=== PATIENT | female | born 1960 | race Caucasian/White ===

== ENCOUNTER → 2016-10-26 | Outpatient (CLI) | payer MEDICARE, MEDICAID | LOC: YCFC.O 09:26 | PROVIDERS: ATTEND Nurse Practitioner Family | DX: E78.2 Mixed hyperlipidemia (principal); I10 Essential (primary) hypertension ==

== ENCOUNTER → 2016-11-07 | Outpatient (CLI) | payer MEDICARE, MEDICAID | LOC: YCFC.O 09:12 | PROVIDERS: ATTEND Nurse Practitioner Family | DX: J20.9 Acute bronchitis, unspecified (principal) ==

== ENCOUNTER → 2016-12-28 | Outpatient (CLI) | payer MEDICARE, MEDICAID | END | disposition home or self-care (01) | LOC: LAB.O 14:32 | PROVIDERS: ATTEND Nurse Practitioner Family | DX: R10.11 Right upper quadrant pain (principal); R10.13 Epigastric pain; R11.2 Nausea with vomiting, unspecified ==

== ENCOUNTER 2017-02-18 05:43 | Observation (INO) | payer MEDICARE, MEDICAID ==
--- NOTE | 2017-02-16 13:28 | RAD ---
EXAM DESCRIPTION: Chest,2 Views CLINICAL HISTORY: Pre Surg for 02/18/17 COMPARISON: May 18, 2014 FINDINGS: Two-view chest x-ray shows cardiomediastinal silhouette and pulmonary vasculature to be within normal limits. The lungs are normally aerated and clear. Costophrenic angles are sharp. Moderate degenerative changes of the spine are seen. IMPRESSION: No radiographic evidence of acute cardiopulmonary disease. Electronically signed by: Jeremy Trivedi MD 02/16/2017 1:28 PM CDT
[2017-02-18] MEDS ORDERED: LACTATED RINGERS 1,000 ML ONE (07:09)
[2017-02-18] MEDS ORDERED: SODIUM CHL 0.9% 50ML MIN-BAG+ 50 ML IVPB ONE (07:17)
[2017-02-18] MEDS ORDERED: ceFAZolin SODIUM 1 GM VIAL ONE (07:18)
[2017-02-18] MEDS ORDERED: fentaNYL CITRATE INJ 50 MCG/ML AMP ONE ×2 (07:47→10:27)
[2017-02-18] MEDS ORDERED: LIDOCAINE 2 % GEL 5 ML TUBE TOP ONE (07:48)
[2017-02-18] MEDS ORDERED: ROCURONIUM BROMIDE 10 MG/ML VIAL ONE (07:48)
[2017-02-18] MEDS ORDERED: BUPIVACAINE 0.25% W/EPI 50 ML VIAL INJ ONE (07:53)
[2017-02-18] MEDS ORDERED: HEPARIN SODIUM (PORCINE) 10,000 UNITS/ML VIAL ONE (07:53)
[2017-02-18] MEDS ORDERED: GLUCAGON INJ 1 MG VIAL ONE (09:33)
--- NOTE | 2017-02-18 10:59 | OP ---
DATE OF PROCEDURE: 02/18/17 PREOPERATIVE DIAGNOSIS: 1. Symptomatic cholelithiasis. 2. Fatty infiltration of the liver. POSTOPERATIVE DIAGNOSIS: 1. Symptomatic cholelithiasis. 2. Fatty infiltration of the liver. 3. Obstructing choledocholithiasis. PROCEDURE: 1. Laparoscopic cholecystectomy with intraoperative cholangiography using fluoroscopy. 2. Wedge biopsy, right lobe of the liver. SURGEON: Antonio Ontiveros MD. ENVIRONMENTAL COMPLIANCE SPECIALIST: None. ANESTHESIA: Local infiltration of 0.25% Marcaine with epinephrine and general endotracheal anesthesia. INDICATION: The patient is a 56-year-old female who has had one severe episode of right upper quadrant pain after a fatty meal. She continues to have ongoing symptoms. She has undergone a cardiac clearance. She has sonographically diagnosed cholelithiasis. The patient was brought to the Surgical Suite today for cholecystectomy after cardiac clearance and the risks, benefits and alternatives to the procedure were discussed and accepted. FINDINGS: There was obvious fatty infiltration of the liver. Biopsy was performed and pending. Gallbladder contained stones. The wall was mildly thickened. Intraoperative cholangiography revealed a mildly dilated common bile duct. The intrahepatic ducts were normal, but there was no flow through the distal common duct into the duodenum even after Glucagon infusion was given. No other significant pathology was identified. DESCRIPTION OF PROCEDURE: After adequate general endotracheal anesthesia was obtained, the patient was prepped and draped in the usual sterile manner. Surgical time-out was taken. When this was done, local infiltration of anesthesia was obtained in the supraumbilical area. A vertical incision was made. Dissection was carried down through the skin and subcutaneous tissue to the midline fascia. Traction sutures were placed on either side of the midline. A small incision was made in the midline fascia and the peritoneum was opened bluntly. Kimmie trocar was introduced under direct vision into the abdominal cavity and fixed in place with the 20 mL balloon. CO2 was then insufflated until a pressure of 12 mmHg was reached and the abdomen was tympanitic in all four quadrants. When this was done, the laparoscope was introduced. The abdomen was inspected with the previously noted findings. The patient was then placed in reverse Trendelenburg position, turned to the left side. The upper abdominal ports were placed under direct vision. The gallbladder was grasped, retracted anteriorly and laterally. The neck of the gallbladder was retracted laterally. The triangle of Calot was then explored with the cystic duct and cystic artery identified and isolated. The cystic duct was hemoclipped once proximally. The cystic artery was hemoclipped twice proximally and once distally. A small incision was made in the cystic duct. The cholangiogram catheter was introduced through a separate stab wound in the right upper quadrant, introduced into the cystic duct and clipped in place. Cholangiograms were then taken with the previously noted findings of now flow into the duodenum. Glucagon 1 mg was given and at about 2-1/2 minutes and about 4 minutes, repeat films with infusions and there was still no contrast into the duodenum. At this point, the cystic duct catheter was removed. The cystic duct was hemoclipped three times distally and divided between the hemoclips. The cystic artery was divided. The gallbladder was then dissected free from the gallbladder bed of the liver. A second vessel was identified in the lower aspect and this was clipped. The gallbladder was removed from the supraumbilical port site in the usual manner under direct vision. The port was placed back into position. A wedge biopsy was performed of the right lobe of the liver medial to the gallbladder bed with a sharp knife. The liver specimen was delivered and then hemostasis was obtained with electrocautery turned up to 50. When hemostasis was noted to be adequate, the subhepatic space and subphrenic space were irrigated copiously with saline. The effluent was noted to be clear. There was no active bleeding was noted. The alex hepatis was inspected and no bleeding or bile leak was identified. At this point, a 15 Estonian round ISAAC drain was introduced through the lateral port site, introduced into the subhepatic space in the area of the cystic duct stump. It was sewn in place with a 4-0 Nylon suture. When this was done, the remaining upper abdominal ports were removed under direct vision and good hemostasis was noted. At this point, the CO2, the laparoscope and the supraumbilical port were removed. The supraumbilical port site fascia was approximated with a single [id number] suture of 0 Vicryl. Subcutaneous tissue was irrigated with saline. Skin edges were approximated with 4-0 Vicryl subcuticular sutures, benzoin and Steri-Strips. ISAAC drain was cut to appropriate length and connected to the grenade suction. The patient tolerated the procedure well. Estimated blood loss was less than 50 mL. All sponge, needle and instrument counts were correct. #[id number] [facility]
[2017-02-18] MEDS ORDERED: ATROPINE SULFATE 0.4 MG/ML 1ML VIAL ONE (12:00)
[2017-02-18] MEDS ORDERED: PROPOFOL 200 MG/20 ML VIAL IV ONE (12:00)
[2017-02-18] MEDS ORDERED: NEOSTIGMINE METHYLSULFATE 1 MG/ML ML IV ONE (12:00)
[2017-02-18] MEDS ORDERED: HYDROmorphone HCL INJ 2 MG/ML VIAL ONE (12:18)
[2017-02-18] MEDS ORDERED: HYDROmorphone HCL INJ 2 MG/ML VIAL IV ONE ×2 (12:22→13:20)
[2017-02-18] MEDS ORDERED: ONDANSETRON INJ 4 MG/2 ML VIAL IV PRN (16:24)
[2017-02-18] MEDS ORDERED: PANTOPRAZOLE SODIUM IV 40 MG VIAL IV SCH (16:30)
[2017-02-18] MEDS: HYDROmorphone HCL INJ 2 MG/ML VIAL IV PRN ×2 (16:51→22:16)
[2017-02-18] MEDS: LACTATED RINGERS 1,000 ML IVS PRN ×2 (16:52→18:19)
[2017-02-18] MEDS ORDERED: ENOXAPARIN SODIUM 40 MG/0.4 ML SYG SUBCU SCH (21:00)
[2017-02-18] MEDS: GABAPENTIN 400 MG CAP PO SCH (21:01)
[2017-02-19] MEDS: HYDROmorphone HCL INJ 2 MG/ML VIAL IV PRN ×3 (02:29→09:20)
[2017-02-19 05:29] VITALS: BP 112/72; TEMP 98.2
[2017-02-19] MEDS: LACTATED RINGERS 1,000 ML IVS PRN (05:38)
[2017-02-19] MEDS ORDERED: SODIUM CHLORIDE 0.9% (FLUSH) 10 ML SYG IV PRN (08:36)
[2017-02-19] MEDS ORDERED: IV SET AND CAP CHANGE INJ INJ SCH (09:00)
[2017-02-19] MEDS: GABAPENTIN 400 MG CAP PO SCH (09:01)
[2017-02-19 09:25] VITALS: O2SAT 98
--- NOTE | 2017-02-19 11:42 | DS ---
FINAL DIAGNOSIS: 1. Cholelithiasis and chronic cholecystitis pending the pathology report. 2. Choledocholithiasis with obstruction. 3. Chronic demyelinating disease. 4. History of deep venous thromboses. 5. History of bronchitis. 6. Tobacco abuse. 7. Fatty infiltration of the liver. SURGICAL PROCEDURE: The patient underwent laparoscopic cholecystectomy with intraoperative cholangiography and wedge biopsy of the right lobe of the liver on 02/18/17. HISTORY OF PRESENT ILLNESS: History and physical are from the written short stay form. LABORATORY: Postoperative day 1 bilirubin was 3 with ALT and AST elevated at 300 and 500. Amylase and lipase were within normal limits. Hemoglobin and white count were stable. Final pathology reports are pending. HOSPITAL COURSE: The patient underwent the laparoscopic cholecystectomy with cholangiography with failure to empty the bile duct into the duodenum despite the Glucagon injection, so the patient was admitted to observation and GI doctor , Dr. Christoph Gibbs in [place] was contacted. He agreed to the usual protocol of overnight observation to see if the bile would drain on its own. However, this morning, as noted, the bilirubin and liver function tests were all greatly elevated despite the fact that she tolerated clear liquids last night, so she was transferred this morning to the care of the hospitalist program at [facility] where Dr. Gibbs will be consulted and perform an ERCP. Her ISAAC drain was serous at the time of discharge. CONDITION ON DISCHARGE: Stable. PROGNOSIS: Guarded. DISPOSITION: The patient is to followup with me sometime next week or sooner if she still has the drain or requires pain medication. #[id number] [facility]
== END 2017-02-19 09:55 | disposition short-term general hospital (02) ==
LOC: AMB 05:43 → MS 15:40
PROVIDERS: ADMIT Surgery; ATTEND Surgery
DX: K80.10 Calculus of gallbladder with chronic cholecystitis without obstruction (principal); K80.44 Calculus of bile duct with chronic cholecystitis without obstruction; K76.0 Fatty (change of) liver, not elsewhere classified; I10 Essential (primary) hypertension; G61.81 Chronic inflammatory demyelinating polyneuritis; K21.9 Gastro-esophageal reflux disease without esophagitis; M81.0 Age-related osteoporosis without current pathological fracture; F17.210 Nicotine dependence, cigarettes, uncomplicated; Z79.899 Other long term (current) drug therapy; Z86.718 Personal history of other venous thrombosis and embolism; Z96.643 Presence of artificial hip joint, bilateral
CPT/HCPCS: 00790; 36415; 47379; 47563; 71020; 80053 ×2; 81001; 82150; 83690; 85025 ×2; 88304; 88307; 88313; 93005; 96372; 96374; 96375; 96376 ×2; 99406; G0378; J0690; J1170 ×8; J1610; J1644; J1650; J2405; J2710; J3010 ×2; J3490; J7050; J7120 ×3

== ENCOUNTER → 2017-05-11 | Outpatient (CLI) | payer MEDICARE, MEDICAID | END | disposition home or self-care (01) | LOC: YCFC.O 07:49 | PROVIDERS: ATTEND Nurse Practitioner Family | DX: E78.2 Mixed hyperlipidemia (principal); R94.5 Abnormal results of liver function studies ==

== ENCOUNTER → 2017-05-13 | Outpatient (CLI) | payer MEDICARE, MEDICAID ==
--- NOTE | 2017-05-14 13:07 | MAM ---
EXAM DESCRIPTION: 3D Screening BILATERAL CLINICAL HISTORY: 57 yearsFemaleSCREENING. No complaints. Sr. with ovarian cancer. Postmenopausal. No HRT. COMPARISON: Digital 2-D bilateral screening study 03/05/2015. No prior reports available. TECHNIQUE: Bilateral CC and MLO projection full-field images, 3-D tomosynthesis digital mammographic technique. Also bilateral synthesized CC/ MLO full-field images. CAD not utilized. FINDINGS: The breast parenchymal density pattern is: Scattered areas of fibroglandular density. No skin thickening or nipple retraction stable nodule at the 1:00 position of the middle third of the left breast. Bilateral axillary lymph nodes. Bilateral solitary microcalcifications. Bilateral skin calcifications. Intramammary lymph node right breast. Anterior intramammary lymph nodes in the left. No focal, stellate mass or density, focal asymmetry , and no suspicious microcalcifications bilaterally. Stable mammograms compared to prior study, taking into account differences in mammographic technique IMPRESSION: BI-RADS CATEGORY: 2 - BENIGN FINDINGS. FOLLOW UP: Routine digital bilateral screening, one year interval from April 2017. Written communication explaining the findings and follow-up, will be mailed to the patient and referring health care provider. According to the [employer], yearly mammograms are recommended starting at age 40 and continuing as long as a woman is in good health. Any breast change noted on a breast self-exam should be reported promptly to the patient's healthcare provider. Breast MRI is recommended for women with an approximately 20-25% or greater lifetime risk of breast cancer, including women with a strong family history of breast or ovarian cancer and women who have been treated for Hodgkin's disease. A negative mammographic report should not delay tissue diagnosis in patients with significant clinical history or physical findings. Extremely dense breast tissue limits the sensitivity of digital mammography. Electronically signed by: Mikie Mead MD 05/14/2017 1:06 PM CDT Workstation: [id number]
== END | disposition home or self-care (01) ==
LOC: MAMMO 08:52
PROVIDERS: ATTEND Nurse Practitioner Family
DX: Z12.31 Encounter for screening mammogram for malignant neoplasm of breast (principal)
CPT/HCPCS: 77063; G0202

== ENCOUNTER → 2017-06-23 | Outpatient (CLI) | payer MEDICARE, MEDICAID ==
--- NOTE | 2017-06-24 13:54 | RAD ---
EXAM DESCRIPTION: Foot,Left 3 Views CLINICAL HISTORY: 57 years, Female, SOFT TISSUE SWELLING COMPARISON: None TECHNIQUE: AP, lateral, and oblique views of the left foot FINDINGS: There is no bone, joint, or soft tissue abnormality observed. There is no radiopaque foreign body. A localized mass or marked soft tissue focal swelling is not apparent. IMPRESSION: Essentially negative left foot three views Electronically signed by: Alexandr Bazzi MD 06/24/2017 1:52 PM CDT
== END ==
LOC: YCFC.O 15:46
PROVIDERS: ATTEND Nurse Practitioner Family
DX: M25.475 Effusion, left foot (principal)

== ENCOUNTER 2017-10-22 13:24 | Emergency (ER) | payer MEDICARE, MEDICAID ==
[2017-10-22 13:50] VITALS: BP 138/71; TEMP 98.3; O2SAT 97
--- NOTE | 2017-10-22 13:50 | ED.PDOC ---
History of Present Illness - General Chief Complaint: Upper Extremity Injury Stated Complaint: left shoulder pain Time Seen by Provider: 10/22/17 13:48 Source: patient Exam Limitations: no limitations - History of Present Illness Occurred: other - TWO DAYS AGO Pain - Upper Extremity: moderate: Shoulder, left Method of Injury: unknown Improving Factors: rest Worsening Factors: movement Associated Symptoms: COUGH Allergies/Adverse Reactions: Allergies NO KNOWN ALLERGY Allergy (Verified 09/03/14 17:01) Home Medications: Ambulatory Orders Calcium Carbonate [Calcium] 1,500 mg PO DAILY #0 09/28/13 Gabapentin [Neurontin] 800 mg PO TID #0 09/28/13 Lisinopril 20 mg PO DAILY #0 09/28/13 Magnesium Citrate [Magnesium Citrate 1.745 gm/30Ml] 1 aimee PO ONCE #1 aimee Cetirizine HCl [Zyrtec Allergy] 10 mg PO DAILY 02/18/17 Review of Systems - Review of Systems Constitutional: States: chills, fever EENTM: States: nose congestion Respiratory: States: cough Cardiology: States: no symptoms reported Gastrointestinal/Abdominal: States: no symptoms reported Genitourinary: States: no symptoms reported Musculoskeletal: States: see HPI Skin: States: no symptoms reported Neurological: States: no symptoms reported Endocrine: States: no symptoms reported Hematologic/Lymphatic: States: no symptoms reported All other Systems: Reviewed and Negative Past Medical History (General) - Patient Medical History Hx Seizures: No Hx Stroke: No Hx Dementia: No Hx Asthma: No Hx of COPD: No Hx Cardiac Disorders: Yes - dyslipidemia Hx Congestive Heart Failure: No Hx Pacemaker: No Hx Hypertension: Yes Hx Thyroid Disease: No Hx Diabetes: No Hx Gastroesophageal Reflux: No Hx Renal Disease: No Hx Cancer: No Hx of HIV: No Hx Hepatitis C: No Hx MRSA: No Hx Other PMH: Yes - AUTO IMMUNE DISORDER - Vaccination History Hx Tetanus, Diphtheria Vaccination: Yes Hx Influenza Vaccination: No Hx Pneumococcal Vaccination: No - Social History Hx Tobacco Use: Yes Hx Chewing Tobacco Use: No Hx Alcohol Use: No Hx Substance Use: No Hx Substance Use Treatment: No Hx Depression: No Hx Physical Abuse: No Hx Emotional Abuse: No Hx Suspected Abuse: No - Female History Patient : No Family Medical History - Family History Paternal Living Status: Hx Family Cancer: Yes Sister Living Status: Hx Family Cancer: Yes Brother Living Status: Hx Cardiac Disease: Yes Physical Exam - Physical Exam General Appearance: Alert, No apparent distress, Obvious distress, Obese, Well Developed, Well Groomed, Well Hydrated, Well Nourished Eyes, Ears, Nose, Throat Exam: PERRL/EOMI, normal ENT inspection, TMs normal, pharynx normal Neck: non-tender, full range of motion, supple, normal inspection Cardiovascular/Respiratory: regular rate, rhythm, no M/R/G, normal peripheral pulses, no JVD, normal breath sounds, no respiratory distress Abdominal Exam: non-tender, no organomegaly, no hernia Back Exam: normal inspection, no CVA tenderness, no vertebral tenderness Shoulder Exam: normal inspection, no evidence of injury, limited ROM, pain - PAIN ON PALPATION OF MEDIAL INFERIOR BAORDER OF LEFT SCAPULA WITH INCREASED PAIN WITH ROM Elbow/Forearm Exam: normal inspection, non-tender, no evidence of injury, normal ROM Wrist Exam: normal inspection, non-tender, no evidence of injury, normal ROM Hand Exam: normal inspection, non-tender, no evidence of injury, normal ROM Neuro/Tendon: normal sensation, normal motor functions, normal tendon functions , no evidence tendon injury Mental Status: alert, oriented x 3 Skin Exam: normal color, warm/dry Progress - Progress Progress: 10/22/17 14:51 PT PAIN MUCH IMPROVED WITH THE TORADOL. WILL D/C HOME WITH MOTRIN 800MG Q8. Departure - Departure Clinical Impression: Left scapulocostal sprain, Sprain Time of Disposition: 14:53 Disposition: Discharge to Home or Self Care Condition: Good Departure Forms: ED Discharge - Pt. Copy, Patient Portal Self Enrollment Instructions: DI for Arm Pain Diet: resume usual diet Activity: increase activity as tolerated Referrals: Kathe Anderson NP [Primary Care Provider] - 1-2 Weeks Home Medications: Ambulatory Orders Calcium Carbonate [Calcium] 1,500 mg PO DAILY #0 09/28/13 Gabapentin [Neurontin] 800 mg PO TID #0 09/28/13 Lisinopril 20 mg PO DAILY #0 09/28/13 Magnesium Citrate [Magnesium Citrate 1.745 gm/30Ml] 1 aimee PO ONCE #1 aimee Cetirizine HCl [Zyrtec Allergy] 10 mg PO DAILY 02/18/17
[2017-10-22] MEDS ORDERED: KETOROLAC TROMETHAMINE INJ 60 MG/2 ML VIAL IM ONE (13:54)
--- NOTE | 2017-10-22 14:16 | RAD ---
EXAM DESCRIPTION: Chest,2 Views CLINICAL HISTORY: COUGH COMPARISON: February 16, 2017 FINDINGS: Two-view chest x-ray shows cardiomediastinal silhouette and pulmonary vasculature to be within normal limits. The lungs are normally aerated and clear. Costophrenic angles are sharp. Moderate disc degenerative changes of the spine are seen. IMPRESSION: No radiographic evidence of acute cardiopulmonary disease. Electronically signed by: Jeremy Trivedi MD 10/22/2017 2:16 PM CRITICAL SYSTEMS TECHNICIAN
== END 2017-10-22 15:07 | disposition home or self-care (01) ==
LOC: ER 13:24
DX: S43.82XA Sprain of other specified parts of left shoulder girdle, initial encounter (principal); E78.5 Hyperlipidemia, unspecified; I10 Essential (primary) hypertension; Z87.891 Personal history of nicotine dependence; X58.XXXA Exposure to other specified factors, initial encounter; Y92.9 Unspecified place or not applicable

== ENCOUNTER → 2017-10-27 | Outpatient (CLI) | payer MEDICARE, MEDICAID | LOC: LAB.O 08:23 | PROVIDERS: ATTEND Psychiatry & Neurology Neurology | DX: G62.9 Polyneuropathy, unspecified (principal); R20.8 Other disturbances of skin sensation ==

== ENCOUNTER → 2018-06-15 | Outpatient (CLI) | payer MEDICARE, MEDICAID | LOC: YCFC.O 07:49 | PROVIDERS: ATTEND Nurse Practitioner Family | DX: I10 Essential (primary) hypertension (principal); E78.2 Mixed hyperlipidemia ==

== ENCOUNTER → 2018-06-21 | Outpatient (CLI) | payer MEDICARE, MEDICAID ==
--- NOTE | 2018-06-22 13:22 | MAM ---
EXAM DESCRIPTION: 3D Screening BILATERAL : Digital Mammography. CLINICAL HISTORY: 58 years Female ANNUAL SCREENING . No complaints. No personal history or family history of breast cancer. Sister with ovarian cancer. No childbirth. Postmenopausal. No HRT. [employer] inheritance. COMPARISON: Bilateral screening digital breast tomosynthesis 05/13/2017.. TECHNIQUE: Bilateral CC and MLO projection full-field images, Digital tomosynthesis mammographic technique. Bilateral digital 2-D full-field MLO images. CAD not utilized. FINDINGS: The breast parenchymal density pattern is: Scattered areas of fibroglandular density. No skin thickening or nipple retraction. Bilateral solitary microcalcifications. Bilateral axillary lymph nodes. Stable soft tissue density with calcifications in the mid right breast. Focal asymmetry in mass density in the upper outer quadrant of the anterior third of the right breast at the 100 clock position. Associated with solitary calcifications. Bilateral vascular calcifications. No new focal, stellate mass or density, focal asymmetry , and no suspicious microcalcifications bilaterally. Stable mammograms compared to prior study. IMPRESSION: Benign exam. BIRAD CATEGORY: 2 BENIGN FINDINGS. RECOMMENDATIONS: FOLLOW UP: Routine digital bilateral screening, one year interval from May 2018. Written communication explaining the IMPRESSION and follow-up, will be mailed to the patient and referring health care provider. According to the [employer], yearly mammograms are recommended starting at age 40 and continuing as long as a woman is in good health. Any breast change noted on a breast self-exam should be reported promptly to the patient's healthcare provider. Breast MRI is recommended for women with an approximately 20-25% or greater lifetime risk of breast cancer, including women with a strong family history of breast or ovarian cancer and women who have been treated for Hodgkin's disease. A negative mammographic report should not delay tissue diagnosis in patients with significant clinical history or physical findings. Extremely dense breast tissue limits the sensitivity of digital mammography. Electronically signed by: Mikie Mead MD 06/22/2018 1:21 PM CDT
== END ==
LOC: MAMMO 10:05
PROVIDERS: ATTEND Nurse Practitioner Family
DX: Z12.31 Encounter for screening mammogram for malignant neoplasm of breast (principal)

== ENCOUNTER → 2019-01-17 | Outpatient (CLI) | payer MEDICARE, MEDICAID | LOC: YCFC.O 07:08 | PROVIDERS: ATTEND Nurse Practitioner Family | DX: E78.2 Mixed hyperlipidemia (principal) ==

== ENCOUNTER 2020-10-07 07:07 | Observation (INO) | payer MEDICARE, MEDICAID ==
[2020-10-07] MEDS ORDERED: ASPIRIN TABLET 325 MG TAB PO ONE (07:31)
--- NOTE | 2020-10-07 08:04 | RAD ---
EXAM DESCRIPTION: Chest,1 View CLINICAL HISTORY: chest pain, left 3 days FINDINGS/ IMPRESSION: Comparison 02/21/2019 Normal cardiomediastinal silhouette. No edema, infiltrate or effusion No pneumothorax. No acute bony abnormality Electronically signed by: Alexandr Claros MD 10/07/2020 8:02 AM [facility]
[2020-10-07] MEDS ORDERED: SODIUM CHLORIDE 0.9% 1000ML 1,000 ML IVS ONE (08:54)
--- NOTE | 2020-10-07 09:39 | CT ---
EXAM DESCRIPTION: CTA Chest CLINICAL HISTORY: 60 years, Female, left chest pain, ddimer COMPARISON: Chest x-ray October 07, 2020 TECHNIQUE: CT pulmonary angiography is performed with thin-section multi detector technique during rapid bolus administration of Isovue 300 IV contrast media. Multiplanar reformatted images are reviewed along with source images and maximum intensity projection three dimensional images which were created on a separate dedicated workstation and are stored in the patient's medical record. FINDINGS: Positive enhancement of pulmonary arteries with filling defects consistent with emboli in the pulmonary arteries serving the posterior segment right upper lobe, right middle lobe and right lower lobe. Prominent emboli are seen at the level of the proximal left lower lobe pulmonary arterial branches with smaller peripheral left lower lobe emboli present as well. No RV strain pattern. Extensive coronary calcification. No pericardial effusion. Normal thyroid gland. Nodularity in the left breast is noted. Correlate with mammographic and breast sonographic findings. Normal enhancement of cardiac chambers. No mediastinal adenopathy. Early enhancement of the aorta is negative for aneurysm or dissection. Lung window images are negative for infiltrate. Minimal discoid atelectasis or scarring in the inferior lingula and medial right middle lobe. No worrisome mass or nodule. In the upper abdomen, upper abdominal viscera are unremarkable. Few small accessory splenules are incidentally noted. No chest wall mass or rib fracture. No axillary or lower cervical adenopathy. Coronal and sagittal reformatted images and oblique MIP images confirm the presence of bilateral pulmonary emboli. I discussed results over the phone with the emergency room physician at [facility] , Dr. Adam Santiago, at the time of image interpretation 9:36 AM on 10/07/2020. IMPRESSION: Positive bilateral pulmonary emboli predominantly involving the lower lobes. This exam was performed according to our departmental dose-optimization program, which includes automated exposure control, adjustment of the mA and/or kV according to patient size and/or use of iterative reconstruction technique. Total DLP equals 836.2 mGycm. Electronically signed by: Junito Galarza MD 10/07/2020 9:38 AM INSTRUCTIONAL PARAPROFESSIONAL
[2020-10-07] MEDS ORDERED: ENOXAPARIN SODIUM 100 MG/ML SYG SUBCU ONE ×2 (09:43→20:34)
--- NOTE | 2020-10-07 10:32 | ED.PDOC ---
History of Present Illness - General Chief Complaint: Chest Pain/OH Stated Complaint: chest pain Time Seen by Provider: 10/07/20 07:29 Source: patient Exam Limitations: no limitations - History of Present Illness Initial Comments: Patient is a 60-year-old female presented to emergency room secondary to chest pain, mild shortness of breath and a cough. Patient reports she had a cough and some mild shortness of breath for the last 3 days. The chest pain got significantly worse this morning and is worse with taking a deep breath, twisting and turning or coughing. She has not hypoxic. She is not hypotensive. She has had DVTs in the past but is not currently on any blood thinners. No fever. Cough is not really productive. She has smoked for 50 years. No de finite history of COPD however. Timing/Duration: unsure Severity: severe Worsening Factors: movement Associated Symptoms: chest pain, cough, shortness of breath Allergies/Adverse Reactions: Allergies NO KNOWN ALLERGY Allergy (Verified 10/07/20 07:22) Home Medications: Ambulatory Orders Calcium Carbonate [Calcium] 1,500 mg PO DAILY #0 09/28/13 Gabapentin [Neurontin] 800 mg PO TID #0 09/28/13 Lisinopril 20 mg PO DAILY #0 09/28/13 Magnesium Citrate 1 aimee PO ONCE #1 aimee 09/03/14 Cetirizine HCl [Zyrtec Allergy] 10 mg PO DAILY 02/18/17 Ibuprofen 800 mg PO Q8HRS #30 tab 10/22/17 Review of Systems - Review of Systems Constitutional: States: malaise EENTM: States: no symptoms reported Respiratory: States: cough, short of breath Cardiology: States: chest pain Gastrointestinal/Abdominal: States: no symptoms reported Genitourinary: States: no symptoms reported Musculoskeletal: States: no symptoms reported Skin: States: no symptoms reported Neurological: States: no symptoms reported Endocrine: States: no symptoms reported All other Systems: No Change from Baseline Past Medical History (General) - Patient Medical History Hx Seizures: No Hx Stroke: No Hx Dementia: No Hx Asthma: No Hx of COPD: No Hx Cardiac Disorders: Yes - dyslipidemia Hx Congestive Heart Failure: No Hx Pacemaker: No Hx Hypertension: Yes Hx Thyroid Disease: No Hx Diabetes: No Hx Gastroesophageal Reflux: No Hx Renal Disease: No Hx Cancer: No Hx of HIV: No Hx Hepatitis C: No Hx MRSA: No Surgical History: appendectomy - Vaccination History Hx Tetanus, Diphtheria Vaccination: Yes Hx Influenza Vaccination: No Hx Pneumococcal Vaccination: No - Social History Hx Tobacco Use: Yes Hx Chewing Tobacco Use: No Hx Alcohol Use: No Hx Substance Use: Yes - marijuana occasionally Hx Substance Use Treatment: No Hx Depression: No Hx Physical Abuse: No Hx Emotional Abuse: No Hx Suspected Abuse: No - Activities of Daily Living Hospice Agency (if applicable):: None - Female History Patient : No Family Medical History - Family History Paternal Living Status: Hx Family Cancer: Yes Sister Living Status: Hx Family Cancer: Yes Brother Family History: No Known Living Status: Hx Cardiac Disease: Yes Physical Exam - Physical Exam General Appearance: Alert, Anxious Eye Exam: bilateral normal Ears, Nose, Throat: hearing grossly normal, normal pharynx Neck: full range of motion, supple Respiratory: lungs clear, normal breath sounds, no respiratory distress, no accessory muscle use Cardiovascular/Chest: normal peripheral pulses, regular rate, rhythm - Borderline tachycardia, no edema Gastrointestinal/Abdominal: non tender, soft Rectal Exam: deferred Back Exam: no CVA tenderness, no vertebral tenderness Extremity: normal range of motion, non-tender, normal inspection, no pedal edema, normal capillary refill 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 We are awaiting official read from the echocardiogram however clinically the patient does not appear to be in any heart failure from this. She has not hypoxic or hypotensive. She does mainly have pleuritic symptoms. She is receiving some pain medications for that. She has been started on Lovenox here. We will also bilateral lower extremity venous Dopplers, if for nothing else then for follow- up reasons. The patient will be admitted for the next 24 hours due to the extensive nature of the pulmonary emboli to make sure we not develop any cardiac issues over the next 24 hours. She has tested negative for coronavirus today. Admit for continued care and monitoring. cesario siegel [id number] - Results/Orders Results/Orders: Rapid coronavirus test is negative. Chest x-ray shows no significant acute infiltrates. CTA of the chest shows bilateral pulmonary emboli, more extensive on the right. No significant evidence of right sided strain. There is mild compared to the left breast that needs follow-up and correlation with mammogram and ultrasound findings. Laboratory Tests 10/07/20 10/07/20 10/07/20 07:20 07:20 07:20 WBC 9.2 RBC 4.66 Hgb 16.3 H Hct 47.7 H MCV 102.5 H MCH 34.9 H MCHC 34.1 RDW 15.7 H Plt Count 162 MPV 8.0 Absolute Neuts (auto) 7.10 H Absolute Lymphs (auto) 1.30 Absolute Monos (auto) 0.70 Absolute Eos (auto) 0.00 Absolute Basos (auto) 0.00 Neutrophils % 77.0 Lymphocytes % 14.5 L Monocytes % 7.7 Eosinophils % 0.5 L Basophils % 0.3 PT 10.3 INR 1.04 PTT (SP) 19.2 L D-Dimer, Quantitative 777.0 H* Sodium 134 L Potassium 3.5 L Chloride 100 L Carbon Dioxide 22 Anion Gap 15.5 BUN 8 Creatinine 0.83 BUN/Creatinine Ratio 9.6 L Random Glucose 110 H Serum Osmolality 267.2 L Lactic Acid Calcium 8.7 Magnesium 2.0 Total Bilirubin 1.6 H AST 34 ALT 30 Alkaline Phosphatase 75 LD Total Creatine Kinase 50 CK-MB (CK-2) 0.8 CK-MB (CK-2) % Not Reportable Troponin I < 0.02 C-Reactive Protein B-Natriuretic Peptide < 15.0 Serum Total Protein 7.6 Albumin 4.3 Globulin 3.3 Albumin/Globulin Ratio 1.3 Urine Color Urine Appearance Urine pH Ur Specific [place] Urine Protein Urine Glucose (UA) Urine Ketones Urine Blood Urine Nitrite Urine Bilirubin Urine Urobilinogen Ur Leukocyte Esterase Urine RBC Urine WBC Ur Epithelial Cells Amorphous Sediment Urine Bacteria Urine Mucus 10/07/20 10/07/20 10/07/20 07:20 07:39 09:22 WBC RBC Hgb Hct MCV MCH MCHC RDW Plt Count MPV Absolute Neuts (auto) Absolute Lymphs (auto) Absolute Monos (auto) Absolute Eos (auto) Absolute Basos (auto) Neutrophils % Lymphocytes % Monocytes % Eosinophils % Basophils % PT INR PTT (SP) D-Dimer, Quantitative Sodium Potassium Chloride Carbon Dioxide Anion Gap BUN Creatinine BUN/Creatinine Ratio Random Glucose Serum Osmolality Lactic Acid 0.9 Calcium Magnesium Total Bilirubin AST ALT Alkaline Phosphatase LD Total 151 Creatine Kinase CK-MB (CK-2) CK-MB (CK-2) % Troponin I C-Reactive Protein 7.2 H B-Natriuretic Peptide Serum Total Protein Albumin Globulin Albumin/Globulin Ratio Urine Color Yellow Urine Appearance Clear Urine pH 6.0 Ur Specific [place] 1.015 Urine Protein Negative Urine Glucose (UA) Negative Urine Ketones Trace Urine Blood Trace-intact H Urine Nitrite Negative Urine Bilirubin Negative Urine Urobilinogen 0.2 Ur Leukocyte Esterase Trace H Urine RBC 0-1 Urine WBC 0-1 Ur Epithelial Cells 3-5 Amorphous Sediment 1+ Urine Bacteria 1+ Urine Mucus Trace Departure - Departure Clinical Impression: Bilateral pulmonary embolism, Pleurisy Disposition: Admit Patient Departure Forms: ED Discharge - Pt. Copy, Patient Portal Self Enrollment Instructions: DI for Chest Pain Referrals: Yolanda Watt NP [Primary Care Provider] - 1-2 Weeks Home Medications: Ambulatory Orders Calcium Carbonate [Calcium] 1,500 mg PO DAILY #0 09/28/13 Gabapentin [Neurontin] 800 mg PO TID #0 09/28/13 Lisinopril 20 mg PO DAILY #0 09/28/13 Magnesium Citrate 1 aimee PO ONCE #1 aimee 09/03/14 Cetirizine HCl [Zyrtec Allergy] 10 mg PO DAILY 02/18/17 Ibuprofen 800 mg PO Q8HRS #30 tab 10/22/17 Decision To Admit - Decistion To Admit Decision to Admit Reason: Medical Nature Decision to Admit Date: 10/07/20 Decision to Admit Time: 10:54
[2020-10-07] MEDS ORDERED: KETOROLAC TROMETHAMINE INJ 30 MG/ML VIAL IM ONE (10:49)
[2020-10-07] MEDS ORDERED: MORPHINE SULFATE INJ 10 MG/ML VIAL IV ONE (10:49)
[2020-10-07] MEDS ORDERED: SODIUM CHLORIDE 0.9% (FLUSH) 10 ML SYG IV PRN (11:34)
--- NOTE | 2020-10-07 11:35 | US ---
EXAM DESCRIPTION: Venous,Lower Extremity LT: ULTRASOUND. CLINICAL HISTORY: pulm emboli COMPARISON: Duplex deep venous lower extremity right side examination of the same visit. TECHNIQUE: Buckner-scale and doppler sonographic evaluation of the deep venous system of the left lower extremity. FINDINGS: Doppler evaluation shows normal color flow and normal phasicity and augmentation of the left common femoral vein, left femoral vein, popliteal vein, left greater saphenous vein, junction with the CFV. Also normal color flow and normal phasicity and augmentation of the peroneal, and and posterior tibial vein. The left lower extremity deep veins were completely compressible; normal occlusion with transducer pressure. Buckner-scale survey showed no echogenic thrombus within these veins. IMPRESSION: 1. Duplex ultrasound evaluation of the left lower extremity deep venous system showing no evidence of thrombosis. Electronically signed by: Mikie Mead MD 10/07/2020 11:33 AM [facility]
--- NOTE | 2020-10-07 11:45 | HP ---
SUPERVISING PHYSICIAN: Alexandr Santiago MD CHIEF COMPLAINT: Chest pain. HISTORY OF PRESENT ILLNESS: This is a 60-year-old female who presented to the Emergency Room with chest pain and mild shortness of breath as well as a cough. The complaints have been lasting for the last 3 days or so, however, the chest pain got significantly worse this morning along with shortness of breath. She does have a history of DVTs but has not taken blood thinners recently. She states she was taken off of these. She is a smoker with no diagnosed history of chronic obstructive pulmonary disease. In the ER, her workup included labs and diagnostics. Her CBC was unremarkable. D-dimer was elevated at 777. Chemistry with no significant abnormalities, mildly elevated bilirubin at 1.6. Troponin was negative. EKG did not show any acute changes. She did have a CT angio of the chest which confirmed bibasilar pulmonary emboli. For that reason, she also had lower extremity ultrasounds to rule out DVT. The right lower extremity DVT was noted in right popliteal, right peroneal and right posterior tibial veins. The left lower extremity was unremarkable. At time of examination, the patient's hemodynamics are acceptable. She is not requiring oxygen and shortness of breath is improved, however, given the bilateral pulmonary embolisms, she is referred for admission. PAST MEDICAL HISTORY: 1. Deep venous thrombosis 2. Hypertension. 3. Chronic inflammatory demyelinating polyneuropathy. PAST SURGICAL HISTORY: 1. Gallbladder surgery. 2. Bilateral hip replacements. MEDICATIONS: Please see medication reconciliation list once verified in the computer. ALLERGIES: NO KNOWN DRUG ALLERGIES. FAMILY HISTORY: Father of pancreatic cancer. Grandfather had bone cancer. Mother with diabetes. SOCIAL HISTORY: The patient smokes one pack per day and has for 20+ years. Occasional alcohol. Occasional marijuana use. REVIEW OF SYSTEMS: CONSTITUTIONAL: No fever or chills. No recent weight loss or weight gain. HEENT: No headaches, vision changes, ear pain, nasal congestion or throat pain. RESPIRATORY: Positive for shortness of breath. No cough, hemoptysis or pleuritic chest pain. CARDIOVASCULAR: Positive for chest pain. No palpitations or peripheral edema. GASTROINTESTINAL: No nausea, vomiting, diarrhea, constipation or abdominal pain. GENITOURINARY: No dysuria, frequency or flank pain. ENDOCRINE: No polydipsia, polyuria or polyphagia. No heat or cold intolerance. NEUROLOGIC: No syncope, paresthesias or seizures. PHYSICAL EXAMINATION: VITAL SIGNS: Blood pressure 117/78, heart rate 93, respiratory rate 18, temperature 98.0, oxygen saturation 97%. GENERAL: Ms. Cruz is a 60-year-old female in no active distress. NEUROLOGIC: The patient is alert. LUNGS: Diminished but otherwise clear to auscultation bilaterally. CARDIOVASCULAR: Regular rate and rhythm. Normal S1, S2. ABDOMEN: Soft. Positive bowel sounds. GENITOURINARY: Deferred. EXTREMITIES: Lower extremities with no edema. LABORATORY: Labs and films are as discussed in history of present illness. IMPRESSION: 1. Bilateral pulmonary emboli. 2. Right lower extremity deep venous thrombosis. 3. Hypertension. 4. Chronic inflammatory demyelinating polyneuropathy. 5. Nicotine dependency. PLAN: The patient will be admitted and placed on cardiac monitoring and monitored for the next 24 hours to ensure no decompensation. I will have case management see exactly what anticoagulant medications are best for her given she is on Medicaid and Medicare. She has already gotten full dose Lovenox. We will put her on proton pump inhibitor and resume her home medications once they are verified in the computer as well. If she remains stable over the next 24 hours, she can be discharged on anticoagulation and she can followup with JARETT Marquez, as an outpatient. #[id number] [facility]
--- NOTE | 2020-10-07 11:46 | US ---
EXAM DESCRIPTION: Venous,Lower Extremity RT: ULTRASOUND. CLINICAL HISTORY: pulm emboli COMPARISON: None Available. TECHNIQUE: Buckner-scale and doppler sonographic evaluation of the deep venous system of the right lower extremity. FINDINGS: Partial thrombosis right popliteal vein with partial grayscale compression by the transducer and echogenicity within the vein. Decreased venous waveforms and color flow on Doppler. The right peroneal vein and right posterior tibial vein showed minimal to no Doppler venous waveform or color flow. Echogenic thrombus on buckner scale imaging with no compression. Doppler evaluation shows normal color flow and normal phasicity and augmentation of the right common femoral vein, right femoral vein, right greater saphenous vein, junction with the CFV. These right lower extremity deep veins were completely compressible; normal occlusion with transducer pressure. Buckner-scale survey showed no echogenic thrombus within these veins. IMPRESSION: 1. Duplex ultrasound evaluation of the right lower extremity deep venous system showing thrombosis in the right popliteal, right peroneal, and right posterior tibial vein. 2. Remaining deep veins of the right lower extremity were unremarkable. CRITICAL COMMUNICATION: The critical value was communicated directly by Gabrielle Ramirez RDMS, (V)T, via phone call, with Lisa Osei RN, Emergency Department, at approximately 1055, on October 07, 2020. Electronically signed by: Mikie Mead MD 10/07/2020 11:45 AM [employer]
[2020-10-07] MEDS ORDERED: IV SET AND CAP CHANGE INJ INJ SCH (12:00)
[2020-10-07] MEDS ORDERED: GABAPENTIN 400 MG CAP ONE (20:34)
[2020-10-07] MEDS: GABAPENTIN 800 MG PO SCH (20:42)
[2020-10-07] MEDS: MORPHINE SULFATE INJ 10 MG/ML VIAL IV PRN (20:44)
[2020-10-08] MEDS: MORPHINE SULFATE INJ 10 MG/ML VIAL IV PRN ×2 (05:26→11:26)
[2020-10-08] MEDS ORDERED: LORATADINE 10 MG TAB PO ONE (06:50)
[2020-10-08] MEDS ORDERED: LISINOPRIL 10 MG TAB ONE (06:50)
[2020-10-08] MEDS ORDERED: GABAPENTIN 400 MG CAP ONE (06:51)
[2020-10-08] MEDS: GABAPENTIN 800 MG PO SCH (08:03)
[2020-10-08] MEDS ORDERED: NON-FORMULARY MEDICATION 1 EA MIS (Lisinopril [Lisinopril] 20 MG) PO SCH (09:00)
[2020-10-08] MEDS ORDERED: NON-FORMULARY MEDICATION 1 EA MIS (Loratadine [Claritin] 10 MG) PO SCH (09:00)
[2020-10-08] MEDS ORDERED: ENOXAPARIN SODIUM 100 MG/ML SYG SUBCU SCH (09:00)
[2020-10-08 12:20] VITALS: BP 111/78; TEMP 96.5; O2SAT 96
--- NOTE | 2020-10-08 14:04 | DS ---
SUPERVISING PHYSICIAN: Alexandr Santiago MD ADMISSION DIAGNOSIS: 1. Bilateral pulmonary emboli. 2. Right lower extremity deep venous thrombosis. 3. Hypertension. 4. Chronic inflammatory demyelinating polyneuropathy. 5. Nicotine dependency. DISCHARGE DIAGNOSIS: 1. Bilateral pulmonary emboli. 2. Right lower extremity deep venous thrombosis. 3. Hypertension. 4. Chronic inflammatory demyelinating polyneuropathy. 5. Nicotine dependency. HOSPITAL COURSE: This is a 60-year-old female who presented to the Emergency Room with chest pain and mild shortness of breath as well as a cough. The complaints have been lasting for the last 3 days or so, however, the chest pain got significantly worse this morning along with shortness of breath. She does have a history of DVTs but has not taken blood thinners recently. She states she was taken off of these. She is a smoker with no diagnosed history of chronic obstructive pulmonary disease. In the ER, her workup included labs and diagnostics. Her CBC was unremarkable. D-dimer was elevated at 777. Chemistry with no significant abnormalities, mildly elevated bilirubin at 1.6. Troponin was negative. EKG did not show any acute changes. She did have a CT angio of the chest which confirmed bibasilar pulmonary emboli. For that reason, she also had lower extremity ultrasounds to rule out DVT. The right lower extremity DVT was noted in right popliteal, right peroneal and right posterior tibial veins. The left lower extremity was unremarkable. At time of examination, the patient's hemodynamics are acceptable. She is not requiring oxygen and shortness of breath is improved, however, given the bilateral pulmonary embolisms, she is referred for admission. She has been stable overnight with no de-oxygenation or hemodynamic instability. She will go home today on Xarelto 15 mg b.i.d. for 3 weeks followed by 20 mg of Xarelto daily indefinitely. She will need followup with JARETT Marquez, to facilitate the 20 mg Xarelto. She has been instructed not to wrap her leg. She can go home, ambulate, but no strenuous activity. She is to resume normal diet. #[id number] [facility]
[2020-10-08] MEDS ORDERED: GABAPENTIN 400 MG CAP PO SCH (15:00)
[2020-10-09] MEDS ORDERED: LISINOPRIL 10 MG TAB PO SCH (09:00)
[2020-10-09] MEDS ORDERED: LORATADINE 10 MG TAB PO SCH (09:00)
== END 2020-10-08 13:08 | disposition home or self-care (01) ==
LOC: ER 07:07 → MS 07:08 → UNDOADMOB 11:44 → MS 11:44 → UNDODISOB 10-08 13:08
PROVIDERS: ADMIT Nurse Practitioner; ATTEND Nurse Practitioner
DX: I26.99 Other pulmonary embolism without acute cor pulmonale (principal); I82.431 Acute embolism and thrombosis of right popliteal vein; I82.451 Acute embolism and thrombosis of right peroneal vein; I82.441 Acute embolism and thrombosis of right tibial vein; I10 Essential (primary) hypertension; G61.81 Chronic inflammatory demyelinating polyneuritis; E78.5 Hyperlipidemia, unspecified; F17.210 Nicotine dependence, cigarettes, uncomplicated; I08.1 Rheumatic disorders of both mitral and tricuspid valves; Z20.822 Contact with and (suspected) exposure to COVID-19; Z79.01 Long term (current) use of anticoagulants; Z79.899 Other long term (current) drug therapy; Z96.643 Presence of artificial hip joint, bilateral; Z80.0 Family history of malignant neoplasm of digestive organs; Z80.8 Family history of malignant neoplasm of other organs or systems; Z83.3 Family history of diabetes mellitus
CPT/HCPCS: 96374; 96376 ×2; 96372 ×2; J1885; J2270 ×4; J7030; J1650 ×3; 85379; 80048; 82553; 80053; 36415 ×3; 81001; 86140; 85025 ×2; 82550; 87040; 83615; 83735; 85730; 85610; 84484; 83880; 83605; 71045; 71275; 93971 ×2; 99285; 93307; 93005; 87635

== ENCOUNTER → 2020-10-31 | Outpatient (CLI) | payer MEDICARE, MEDICAID | LOC: HHH 12:40 | PROVIDERS: ATTEND Nurse Practitioner Family | DX: I82.91 Chronic embolism and thrombosis of unspecified vein (principal); I26.99 Other pulmonary embolism without acute cor pulmonale; Z79.899 Other long term (current) drug therapy; Z79.01 Long term (current) use of anticoagulants ==

== ENCOUNTER → 2020-11-21 | Outpatient (CLI) | payer MEDICARE, MEDICAID ==
--- NOTE | 2020-11-22 15:06 | MAM ---
EXAM DESCRIPTION: 3D Screening BILATERAL : Digital Mammography. CLINICAL HISTORY: 60 years Female SCREEN . No complaints and no family history of breast cancer. Menarche age 14. No childbirth. Menopause age unknown. No HRT. Lifetime risk of developing breast cancer (Tyrer-Cuzick model)(%): 8.5. COMPARISON: Bilateral screening digital breast tomosynthesis May 2018 and April 2017. TECHNIQUE: Bilateral CC and MLO projection full-field images, digital tomosynthesis mammographic technique. Bilateral digital 2-D full-field MLO images. CAD available for 2-D images. FINDINGS: The breast parenchymal density pattern is: Scattered areas of fibroglandular density. Axillary nodes. Solitary microcalcifications. Stable focal asymmetry upper outer quadrant middle third left breast. Stable well-circumscribed nodules in the lateral anterior left breast. No skin thickening or nipple retraction No new focal, stellate mass or density, focal asymmetry , and no suspicious microcalcifications bilaterally. Stable mammograms compared to prior study. IMPRESSION: Benign exam. BIRAD CATEGORY: 2 BENIGN FINDINGS. RECOMMENDATIONS: FOLLOW UP: Routine digital bilateral mammographic screening, one year interval from October 2020. Written communication explaining the IMPRESSION and follow-up, will be mailed to the patient and referring health care provider. According to the [employer], yearly mammograms are recommended starting at age 40 and continuing as long as a woman is in good health. Any breast change noted on a breast self-exam should be reported promptly to the patient's healthcare provider. Breast MRI is recommended for women with an approximately 20-25% or greater lifetime risk of breast cancer, including women with a strong family history of breast or ovarian cancer and women who have been treated for Hodgkin's disease. A negative mammographic report should not delay tissue diagnosis in patients with significant clinical history or physical findings. Extremely dense breast tissue limits the sensitivity of digital mammography. Electronically signed by: Mikie Mead MD 11/22/2020 3:04 PM [employer] M[employer]IN[employer]
== END ==
LOC: US 07:54
PROVIDERS: ATTEND Nurse Practitioner Family
DX: Z12.31 Encounter for screening mammogram for malignant neoplasm of breast (principal)